=== PATIENT | female | born 1965 | race Caucasian/White ===

== ENCOUNTER 2020-07-28 16:24 | Emergency (ER) | payer OTHER ==
[~2020-07-28] VITALS: Ht 170.2 cm; Wt 91.0 kg
[2020-07-28 16:35] VITALS: BP 129/95
--- NOTE | 2020-07-28 17:14 | PHYS DOC ---
General Adult EDM: Chief Complaint: DENTAL PROBLEM HPI: HPI: Patient is a 55-year-old female who presents with pain to the front of her mouth and jaw. Patient states that she fell on Tuesday and she tripped. Patient denies hitting her head, denies loss of consciousness. Patient has abrasion to top upper lip. Patient has history of aneurysm in 2010. Patient does have some residual weakness, and numbness, facial droop to the left side. (KIMBERLYN PERSAUD APRN) Review of Systems: Review of Systems: Constitutional: Denies fever or chills Eyes: Denies change in visual acuity HENT: Denies nasal congestion or sore throat Respiratory: Denies cough or shortness of breath Cardiovascular: Denies chest pain or edema GI: Denies abdominal pain, nausea, vomiting, bloody stools or diarrhea : Denies dysuria Musculoskeletal: Denies back pain or joint pain Integument: Abrasion to upper lip Neurologic: Denies headache, focal weakness or sensory changes Endocrine: Denies polyuria or polydipsia Lymphatic: Denies swollen glands Psychiatric: Denies depression or anxiety (KIMBERLYN PERSAUD APRN) Physical Exam: PE: Constitutional: Well developed, well nourished, no acute distress, non-toxic appearance. [] HENT: Normocephalic, atraumatic, bilateral external ears normal, oropharynx moist, no oral exudates, nose normal. [] Eyes: PERRLA, EOMI, conjunctiva normal, no discharge. [] Neck: Normal range of motion, no tenderness, supple, no stridor. [] Cardiovascular:Heart rate regular rhythm, no murmur [] Lungs & Thorax: Bilateral breath sounds clear to auscultation [] Abdomen: Bowel sounds normal, soft, no tenderness, no masses, no pulsatile masses. [] Skin: Warm, dry, no erythema, scabbing to upper lip Back: No tenderness, no CVA tenderness. [] Extremities: No tenderness, no cyanosis, no clubbing, ROM intact, no edema. [] Neurologic: Alert and oriented X 3, normal motor function, normal sensory function, no focal deficits noted. [] Psychologic: Affect normal, judgement normal, mood normal. [] (KIMBERLYN PERSAUD APRN) EKG: EKG: [] (KIMBERLYN PERSAUD APRN) Radiology/Procedures: Radiology/Procedures: []CT scan of the head without contrast 07/28/2020 Clinical History: Fall with head injury. Technique: Unenhanced, contiguous, 5 mm axial sections were obtained through the head. One or more of the following individualized dose reduction techniques were utilized for this study: 1. Automated exposure control. 2. Adjustment of the mA and/or kV according to patient size. 3. Use of iterative reconstruction technique. Findings: The ventricles are within normal limits in size. 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 No acute parenchymal abnormality is seen. No extra-axial fluid collection is noted. No skull fracture is seen. Impression: No acute intracranial abnormality is seen. CT scan of the facial bones without contrast 07/28/2020 Clinical history: Fall with facial injury. Technique: Unenhanced, contiguous, 0.625 mm axial sections were obtained through the facial bones and orbits. 3 mm reconstructed sagittal, axial and coronal images were obtained. One or more of the following individualized dose reduction techniques were utilized for this study: 1. Automated exposure control. 2. Adjustment of the mA and/or kV according to patient size. 3. Use of iterative reconstruction technique. Findings: No facial bone fracture is seen. Both orbits are intact. The paranasal sinuses are clear. No air-fluid level is seen. Impression: No facial bone or orbital fracture is seen. Electronically signed by: Lloyd Wetzel MD (07/28/2020 5:45 PM) [id number] (KIMBERLYN PERSAUD APRN) Heart Score: Risk Factors: Risk Factors: DM, Current or recent (<one month) smoker, HTN, HLP, family history of CAD, obesity. Risk Scores: Score 0 - 3: 2.5% MACE over next 6 weeks - Discharge Home Score 4 - 6: 20.3% MACE over next 6 weeks - Admit for Clinical Observation Score 7 - 10: 72.7% MACE over next 6 weeks - Early Invasive Strategies (KIMBERLYN PERSAUD APRN) Course & Med Decision Making: Course & Med Decision Making Pertinent Labs and Imaging studies reviewed. (See chart for details) [] 5-year-old female presents to the ER after she tripped and fell and hit her face. Patient been complaining of jaw pain and facial pain since Tuesday. Patient reports taking Tylenol at home with some relief. Patient states she cannot hardly chew because of the pain. CT of face jaw ordered to rule out any fractures. CT negative for fractures. Patient is hemodynamically stable. Will discharge patient home and follow-up with primary care physician. (KIMBERLYN PERSAUD APRN) Course & Med Decision Making I oversaw care of patient. I discussed case in its' entirety with [employer] and agree with note, plan of care and dispo (ELIDIA WIGGINS DO) Yolande Disclaimer: Yolande Disclaimer: This electronic medical record was generated, in whole or in part, using a voice recognition dictation system. (KIMBERLYN PERSAUD APRN) Departure Departure: Impression: Primary Impression: Fall Qualified Codes: W19.XXXA - Unspecified fall, initial encounter Disposition: 01 DC HOME SELF CARE/HOMELESS Condition: GOOD Referrals: ALESIA ZARAGOZA (PCP) Patient Instructions: Fall Prevention and Home Safety, [id number] Additional Instructions: Emergency room today for a fall on Tuesday. CT of your face and jaw showed no fractures. Please continue to take Tylenol ibuprofen at home for discomfort. Please follow-up with your primary care physician for further management of your pain. Please return to the emergency room with worsening symptoms or concerns. EMERGENCY DEPARTMENT GENERAL DISCHARGE INSTRUCTIONS Thank you for coming to [facility] (ED) today and trusting us with you care. We trust that you had a positivie experience in our Emergency Department. If you wish to speak to the department management, you may call the director at [phone]. YOUR FOLLOW UP INSTRUCTIONS ARE FOLLOWS: 1. Do you have a private Doctor? If you do not have a private doctor, please ask for a resource list of physicians or clinics that may be able to assist you with follow up care. 2. The Emergency Physician has interpreted your x-rays. The X-Ray specialist will also review them. If there is a change in the findings, you will be notified in 48 hours when at all possible. 3. A lab test or culture has been done, your results will be reviewed and you will be notified if you need a change in treatment. ADDITIONAL INSTRUCTIONS AND INFORMATION: 1. Your care today has been supervised by a physician who is specially trained in emergency care. Many problems require more than one evaluation for a complete diagnosis and treatment. We recommend that you schedule your follow up appointment as recommended to ensure complete treatment of you illness or injury. If you are unable to obtain follow up care and continue to have a problem, or if your condition worsens, we recommend that you return to the ED. 2. We are not able to safely determine your condition over the phone nor are we able to give sound medical advice over the phone. For these safety reasons, if you call for medical advice we will ask you to come to the ED for further evaluation. 3. If you have any questions regarding these discharge instructions please call the ED at [phone]. SAFETY INFORMATION: In the interest of safety, wellness, and injury prevention; we encourage you to wear your sealbelt, if you smoke; quite smoking, and we encourage family to use a protective helmet for bicycling and other sporting events that present an increased risk for head injury. IF YOUR SYMPTOMS WORSEN OR NEW SYMPTOMS DEVELOP, OR YOU HAVE CONCERNS ABOUT YOUR CONDITION; OR IF YOUR CONDITION WORSENS WHILE YOU ARE WAITING FOR YOUR FOLLOW UP APPOINTMENT; EITHER CONTACT YOUR PRIMARY CARE DOCTOR, THE PHYSICIAN WHOSE NAME AND NUMBER YOU WERE GIVEN, OR RETURN TO THE ED IMMEDIATELY. Scripts Hydrocodone Bit/Acetaminophen (HYDROCODONE-APAP 5-325 ) 1 Each Tablet 1 TAB PO Q4-6HRS PRN for PAIN for 2 Days, #9 TAB 0 Refills Prov: KIMBERLYN PERSAUD APRN 07/28/20 KIMBERLYN PERSAUD APRN Jul 28, 2020 17:14 ELIDIA WIGGINS DO Jul 29, 2020 14:56
--- NOTE | 2020-07-28 17:47 | RAD ---
CT scan of the head without contrast 07/28/2020 Clinical History: Fall with head injury. Technique: Unenhanced, contiguous, 5 mm axial sections were obtained through the head. One or more of the following individualized dose reduction techniques were utilized for this study: 1. Automated exposure control. 2. Adjustment of the mA and/or kV according to patient size. 3. Use of iterative reconstruction technique. Findings: The ventricles are within normal limits in size. The large area encephalomalacia seen invol ving portions of the right temporal and right frontal parietal lobe. No acute parenchymal abnormality is seen. No extra-axial fluid collection is noted. No skull fracture is seen. Impression: No acute intracranial abnormality is seen. CT scan of the facial bones without contrast 07/28/2020 Clinical history: Fall with facial injury. Technique: Unenhanced, contiguous, 0.625 mm axial sections were obtained through the facial bones and orbits. 3 mm reconstructed sagittal, axial and coronal images were obtained. One or more of the following individualized dose reduction techniques were utilized for this study: 1. Automated exposure control. 2. Adjustment of the mA and/or kV according to patient size. 3. Use of iterative reconstruction technique. Findings: No facial bone fracture is seen. Both orbits are intact. The paranasal sinuses are clear. N o air-fluid level is seen. Impression: No facial bone or orbital fracture is seen. Electronically signed by: Lloyd Wetzel MD (07/28/2020 5:45 PM) [id number]
[2020-07-28] MEDS ORDERED: HYDR-2155 PO (18:26)
== END 2020-07-28 19:02 | disposition home or self-care (01) ==
LOC: ER 16:24
DX: S00.531A Contusion of lip, initial encounter (principal); R68.84 Jaw pain; R53.1 Weakness; R20.2 Paresthesia of skin; W01.0XXA Fall on same level from slipping, tripping and stumbling without subsequent striking against object, initial encounter; Y93.89 Activity, other specified; Y92.89 Other specified places as the place of occurrence of the external cause; Y99.8 Other external cause status
CPT/HCPCS: 70450; 70486; 99285